=== PATIENT | male | born 1955 | race Caucasian/White ===

== ENCOUNTER 2019-04-02 05:25 | Emergency (ER) | payer MEDICARE, MEDICAID ==
[~2019-04-02] VITALS: Ht 195.6 cm; Wt 125.2 kg
[~2019-04-02 05:25] MED LIST: ASPI-482 PO; ASPI325T8 PO; ATOR40TA59 PO; CETI10TA16 PO; HYDR-2765 PO; LISI10TA2 PO; LISINOPRIL PO; METO-269 PO; METOPROLOL; PANT40TA77 PO; SIMVASTATIN
--- NOTE | 2019-04-02 05:32 | PHYS DOC ---
Past Medical History Past Medical History: Arrhythmia, High Cholesterol, Hypertension (MARCIA GLEZ DO) Past Surgical History: Other Additional Past Surgical Histo: MITRAL VALVE REPAIR, left inguinal hernia repair (MARCIA GLEZ DO) Smoking: Quit Greater Than 1 Year Alcohol Use: Rarely Drug Use: None (MARCIA GLEZ DO) Adult General Chief Complaint Chief Complaint: ABDOMINAL PAIN HPI HPI Patient is a 63 year old male who presents with abdominal pain. Pain started yesterday at noon, is localized to his right lower quadrant. It is a sharp pain that is worse with movement. He has nausea but no vomiting, fever, chills, or diarrhea. The pain is currently rated 5/10. (MARCIA GLEZ DO) Review of Systems Review of Systems Constitutional: Denies fever or chills Eyes: Denies redness or eye pain HENT: Denies nasal congestion or sore throat Respiratory: Denies cough or shortness of breath Cardiovascular: Denies chest pain or palpitations GI: Reports abdominal pain and nausea, denies vomiting : Denies dysuria or hematuria Musculoskeletal: Denies back pain or joint pain Integument: Denies rash or skin lesions Neurologic: Denies headache, focal weakness or sensory changes Complete systems were reviewed and found to be within normal limits, except as d ocumented in this note. (MARCIA GLEZ DO) Current Medications Current Medications Current Medications Medications (Trade) Dose Ordered Sig/[place] Start Time Stop Time Status Last Admin Dose Admin Info (CONTRAST GIVEN -- Rx MONITORING) 1 each PRN DAILY PRN 04/02/19 06:45 04/04/19 06:44 Iohexol (Omnipaque 300 Mg/ml) 60 ml 1X ONCE 04/02/19 06:45 04/02/19 06:46 DC 04/02/19 06:43 60 ML Piperacillin Sod/ Tazobactam Sod 3.375 gm/Sodium Chloride 50 ml @ 100 mls/hr 1X ONCE 04/02/19 07:15 04/02/19 07:44 DC 04/02/19 07:55 100 MLS/HR Sodium Chloride 1,000 ml @ 1,000 mls/hr 1X ONCE 04/02/19 06:00 04/02/19 06:59 DC 04/02/19 06:00 1,000 MLS/HR (FLOWER BOYCE MD) Allergies Allergies Allergies Coded Allergies Type Severity Reaction Last Updated Verified No Known Drug Allergies 01/13/14 No (FLOWER BOYCE MD) Physical Exam Physical Exam Constitutional: Well developed, well nourished, no acute distress, non-toxic appearance HENT: Normocephalic, atraumatic, oropharynx moist Eyes: PERRL, EOMI, conjunctiva normal, no discharge Neck: Normal range of motion, no tenderness, supple Cardiovascular: Heart rate normal, regular rhythm Lungs & Thorax: Bilateral breath sounds clear to auscultation, no wheezing Abdomen: Soft, tenderness to palpation in right lower quadrant, no peritoneal si gns, no Rovsing sign, no obturator sign. Skin: Warm, dry, no erythema, no rash Back: No tenderness, no CVA tenderness Extremities: No tenderness, ROM intact, no edema Neurologic: Alert and oriented X 3, normal motor function, normal sensory functi on, no focal deficits noted Psychologic: Affect normal, judgement normal, mood normal (MARCIA GLEZ DO) Current Patient Data Vital Signs Vital Signs Date Time Temp Pulse Resp B/P (MAP) Pulse Ox O2 Delivery O2 Flow Rate FiO2 04/02/19 08:00 68 129/75 (93) 99 Room Air 04/02/19 06:24 18 04/02/19 05:44 98.2 98.2 (FLOWER BOYCE MD) Lab Values Laboratory Tests Test 04/02/19 05:54 04/02/19 05:58 04/02/19 08:55 White Blood Count 9.0 x10^3/uL (4.0-11.0) Red Blood Count 4.16 x10^6/uL (4.30-5.70) L Hemoglobin 12.6 g/dL (13.0-17.5) L Hematocrit 36.6 % (39.0-53.0) L Mean Corpuscular Volume 88 fL (79-100) Mean Corpuscular Hemoglobin 30 pg (25-35) Mean Corpuscular Hemoglobin Concent 35 g/dL (31-37) Red Cell Distribution Width 15.5 % (11.5-14.5) H Platelet Count 159 x10^3/uL (140-400) Neutrophils (%) (Auto) 72 % (31-73) Lymphocytes (%) (Auto) 20 % (24-48) L Monocytes (%) (Auto) 7 % (0-9) Eosinophils (%) (Auto) 1 % (0-3) Basophils (%) (Auto) 1 % (0-3) Neutrophils # (Auto) 6.5 x10^3/uL (1.8-7.7) Lymphocytes # (Auto) 1.8 x10^3/uL (1.0-4.8) Monocytes # (Auto) 0.6 x10^3/uL (0.0-1.1) Eosinophils # (Auto) 0.1 x10^3/uL (0.0-0.7) Basophils # (Auto) 0.1 x10^3/uL (0.0-0.2) Prothrombin Time 13.2 SEC (11.7-14.0) Prothrombin Time INR 1.0 (0.8-1.1) PTT 30 SEC (24-38) Sodium Level 141 mmol/L (136-145) Potassium Level 4.6 mmol/L (3.5-5.1) Chloride Level 105 mmol/L (98-107) Carbon Dioxide Level 27 mmol/L (21-32) Anion Gap 9 (6-14) Blood Urea Nitrogen 25 mg/dL (8-26) Creatinine 1.5 mg/dL (0.7-1.3) H Estimated GFR (Cockcroft-Gault) 47.3 BUN/Creatinine Ratio 17 (6-20) Glucose Level 122 mg/dL (70-99) H Lactic Acid Level 2.8 mmol/L (0.4-2.0) H 1.4 mmol/L (0.4-2.0) Calcium Level 8.9 mg/dL (8.5-10.1) Magnesium Level 2.2 mg/dL (1.8-2.4) Total Bilirubin 0.4 mg/dL (0.2-1.0) Aspartate Amino Transferase (AST) 19 U/L (15-37) Alanine Aminotransferase (ALT) 32 U/L (16-63) Alkaline Phosphatase 85 U/L (46-116) Creatine Kinase 182 U/L (39-308) Creatine Kinase MB (Mass) 2.5 ng/mL (0.0-3.6) Creatine Kinase MB Relative Index 1.4 % (0-4) Troponin I Quantitative < 0.017 ng/mL (0.000-0.055) Total Protein 7.1 g/dL (6.4-8.2) Albumin 4.2 g/dL (3.4-5.0) Albumin/Globulin Ratio 1.4 (1.0-1.7) Lipase 102 U/L (73-393) Urine Collection Type Unknown Urine Color Yellow Urine Clarity Clear Urine pH 5.5 Urine Specific [place] 1.010 Urine Protein Negative mg/dL (NEG-TRACE) Urine Glucose (UA) Negative mg/dL (NEG) Urine Ketones (Stick) Negative mg/dL (NEG) Urine Blood Negative (NEG) Urine Nitrite Negative (NEG) Urine Bilirubin Negative (NEG) Urine Urobilinogen Dipstick 0.2 mg/dL (0.2 mg/dL) Urine Leukocyte Esterase Negative (NEG) Urine RBC Occ /HPF (0-2) Urine WBC 1-4 /HPF (0-4) Urine Squamous Epithelial Cells Few /LPF Urine Bacteria 0 /HPF (0-FEW) Laboratory Tests 04/02/19 05:54 Laboratory Tests 04/02/19 05:54 (FLOWER BOYCE MD) EKG EKG 04/02/2019 at 05 58 shows normal sinus rhythm at [address] elevations.[] (MARCIA GLEZ DO) Radiology/Procedures Radiology/Procedures [] (MARCIA GLEZ DO) Radiology/Procedures [facility] [address] [place] [address] IMAGING REPORT Signed PATIENT: BRETT HARDY ACCOUNT: [id number] : 1955 LOCATION: ER AGE: 63 SEX: M EXAM STATUS: REG ER ORD. PHYSICIAN: MARCIA GLEZ DO REASON: RLQ abdominal pain PROCEDURE: CT ABD PELV W/ IV CONTRST ONLY CT study abdomen and pelvis with contrast Clinical indications: Right lower quadrant abdominal pain TECHNIQUE: After IV infusion of 60 cc. Omnipaque 300, helical CT scanning of the abdomen and pelvis was performed. Note-the scan was performed in delayed fashion since the vascular ultrasound technologist inadvertently scanned the chest. No GI contrast was administered. This may decrease the sensitivity to detect GI tract pathology. PQRS compliance Statement One or more of the following individualized dose reduction techniques were utilized for this study: 1. Automated exposure control 2. Adjustment of the mA and/or kV according to patient size 3. Use of iterative reconstruction technique COMPARISON: None available. FINDINGS: There are hypodense lesions of the liver. The largest is seen within the upper aspect of the liver measuring 3.7 cm in size. It measures 18 Hounsfield units consistent with a cyst. The spleen measures 13.2 cm in length which is at the upper limits of normal. The pancreas and gallbladder are normal. No extra hepatic biliary ductal dilatation is seen. No adrenal mass is evident. No hydronephrosis or hydroureter is seen. Bilateral renal cysts are seen. No focal aneurysmal dilatation of the abdominal aorta is seen. No enlarged abdominal or pelvic lymphadenopathy is evident. Urinary bladder wall is smooth. The appendix and terminal ileum are unremarkable. No obstructive bowel pattern is evident. No pericolonic inflammatory change is seen. Scattered colonic diverticulosis is seen without diverticulitis. Mild fecal retention is seen throughout the colon. No free air or free fluid or mesenteric edema is seen. No lung base consolidation is evident. No lytic process is seen. IMPRESSION: No acute abnormality of the abdomen or pelvis. The spleen measures 13.2 cm in length which is at the upper limits of normal. Calcified atheromatous disease of the coronary arteries is evident. Electronically signed by: Lavern Vega MD (04/02/2019 8:06 AM) [facility] DICTATED and SIGNED BY: LAVERN VEGA MD DATE: 04/02/19805 (FLOWER BOYCE MD) Course & Med Decision Making Course & Med Decision Making Mr. Hardy is a 63 year old male who presents with abdominal pain. He is having sharp right lower abdominal pain that started yesterday at noon. He is having nausea with no vomiting, fever, chills, or diarrhea. The patient had a previous exploratory laparotomy d/t penetrating abdominal trauma. CT scan with IV contrast of the abdomen ordered to r/o appendicitis or other abdominal pathologies. Sign out to Dr. Boyce for further evaluation and disposition. Discussed plan with patient and family, who acknowledge understanding and agreement. [] (MARCIA GLEZ DO) Course & Med Decision Making Patient care transferred to mo at 0600. Patient was seen by Dr. ndiaye because of right lower abdominal pain. Patient had unremarkable physical exam except for mild right lower quadrant guarding and tenderness with deep pressure. Patient had unremarkable CBC and CMP except for creatinine of 1.5. Lactic acid was 2.8 and blood culture was obtained and one dose of Zosyn was given. CT abdomen and pelvis did not show acute problem except for accidental finding of 3.5 cm liver cyst. Repeat lactic acid was 1.4. Plan discharge patient home with nonspecific abdominal pain. Patient did not want any pain medication while he was in the emergency room and stated he had pain medication at home. (FLOWER BOYCE MD) Dragon Disclaimer Dragon Disclaimer This electronic medical record was generated, in whole or in part, using a voice recognition dictation system. (MARCIA GLEZ DO) Departure Departure Impression: Primary Impression: Abdominal pain Additional Impressions: Liver cyst Renal insufficiency Disposition: HOME, SELF-CARE (at 0 922) Condition: IMPROVED Referrals: TATYANA MACK MD (PCP) Patient Instructions: Abdominal Pain (Nonspecific) Additional Instructions: Drink plenty of liquids Follow-up with your primary care physician in 3-5 days Return to ER if not getting better Scripts Cephalexin (KEFLEX) 500 Mg Capsule 2 CAP PO Q12HR, #28 CAP Prov: FLOWER BOYCE MD 04/02/19 Problem Qualifiers Primary Impression: Abdominal pain Abdominal location: right lower quadrant Qualified Codes: R10.31 - Right lower quadrant pain MARCIA GLEZ DO Apr 02, 2019 05:32 FLOWER BOYCE MD Apr 02, 2019 07:07
[2019-04-02] MEDS ORDERED: IV NORMAL SALINE 1000ML BAG 1,000 ML IV ONE (06:00)
[2019-04-02 06:12] LABS: BASO # 0.1 x10^3/uL (0.0-0.2); BASO % 1 % (0-3); EOS # 0.1 x10^3/uL (0.0-0.7); EOS % 1 % (0-3); HEMATOCRIT 36.6 % (39.0-53.0); HEMOGLOBIN 12.6 g/dL (13.0-17.5); LYMPH # 1.8 x10^3/uL (1.0-4.8); LYMPH % 20 % (24-48); MEAN CORPUSCULAR HEMOGLOBIN 30 pg (25-35); MEAN CORPUSCULAR HGB CONC 35 g/dL (31-37); MEAN CORPUSCULAR VOLUME 88 fL (79-100); MONO # 0.6 x10^3/uL (0.0-1.1); MONO % 7 % (0-9); NEUT # 6.5 x10^3/uL (1.8-7.7); NEUT % 72 % (31-73); PLATELET COUNT 159 x10^3/uL (140-400); RED BLOOD COUNT 4.16 x10^6/uL (4.30-5.70); RED CELL DISTRIBUTION WIDTH 15.5 % (11.5-14.5)
[2019-04-02 06:20] LABS: CALCIUM 8.9 mg/dL (8.5-10.1); CREATININE 1.5 mg/dL (0.7-1.3); GFR 47.3; POTASSIUM 4.6 mmol/L (3.5-5.1)
[2019-04-02 06:26] LABS: ALBUMIN 4.2 g/dL (3.4-5.0); ALBUMIN/GLOBULIN RATIO 1.4 (1.0-1.7); MAGNESIUM 2.2 mg/dL (1.8-2.4); TOTAL BILIRUBIN 0.4 mg/dL (0.2-1.0); TOTAL PROTEIN 7.1 g/dL (6.4-8.2)
[2019-04-02 06:37] LABS: BILIRUBIN,URINE NEGATIVE (NEG); CLARITY,URINE CLEAR; COLOR,URINE YELLOW; NITRITE,URINE NEGATIVE (NEG); PH,URINE 5.5; PROTEIN,URINE NEGATIVE (NEG-TRACE); UROBILINOGEN,URINE 0.2 mg/dL (0.2 mg/dL)
[2019-04-02] MEDS ORDERED: CONTRAST GIVEN. MC PRN (06:45)
[2019-04-02] MEDS ORDERED: IOHEXOL 300 MG/ML 100ML VIAL. IV ONE (06:45)
[2019-04-02 06:57] LABS: BACTERIA,URINE 0 /HPF (0-FEW); RBC,URINE OCC /HPF (0-2); SQUAMOUS EPITHELIAL CELL,UR FEW /LPF
[2019-04-02 07:10] LABS: PROTHROMBIN TIME PATIENT 13.2 SEC (11.7-14.0)
[2019-04-02] MEDS ORDERED: PIPERACILLIN/TAZOBACTAM 3.375 GM in IV NORMAL SALINE 50ML 50 ML IV ONE (07:15)
--- NOTE | 2019-04-02 08:09 | RAD ---
CT study abdomen and pelvis with contrast Clinical indications: Right lower quadrant abdominal pain TECHNIQUE: After IV infusion of 60 cc. Omnipaque 300, helical CT scanning of the abdomen and pelvis was performed. Note-the scan was performed in delayed fashion since the tomography technologist inadvertently scanned the chest. No GI contrast was administered. This may decrease the sensitivity to detect GI tract pathology. PQRS compliance Statement One or more of the following individualized dose reduction techniques were utilized for this study: 1. Automated exposure control 2. Adjustment of the mA and/or kV according to patient size 3. Use of iterative reconstruction technique COMPARISON: None available. FINDINGS: There are hypodense lesions of the liver. The largest is seen within the upper aspect of the liver measuring 3.7 cm in size. It measures 18 Hounsfield units consistent with a cyst. The spleen measures 13.2 cm in length which is at the upper limits of normal. The pancreas and gallbladder are normal. No extra hepatic biliary ductal dilatation is seen. No adrenal mass is evident. No hydronephrosis or hydroureter is seen. Bilateral renal cysts are seen. No focal aneurysmal dilatation of the abdominal aorta is seen. No enlarged abdominal or pelvic lymphadenopathy is evident. Urinary bladder wall is smooth. The appendix and terminal ileum are unremarkable. No obstructive bowel pattern is evident. No pericolonic inflammatory change is seen. Scattered colonic diverticulosis is seen without diverticulitis. Mild fecal retention is seen throughout the colon. No free air or free fluid or mesenteric edema is seen. No lung base consolidation is evident. No lytic process is seen. IMPRESSION: No acute abnormality of the abdomen or pelvis. The spleen measures 13.2 cm in length which is at the upper limits of normal. Calcified atheromatous disease of the coronary arteries is evident. Electronically signed by: Kp Vega MD (04/02/2019 8:06 AM) [facility]
[2019-04-02] MEDS ORDERED: CEPH-264 PO (09:23)
[2019-04-02 09:25] VITALS: BP 109/80
--- NOTE | 2019-04-03 11:43 | EKG ---
[facility] [address] [place] [address] Test Date: 2019-04-02 Test Time: 05:58:02 Pat Name: BRETT GALVAN Department: Room: Gender: M [employer]: : 1955 Requested By: MARCIA GLEZ Order Number: [id number] Reading MD: Measurements Intervals [place] Rate: 72 P: 37 [place]: 136 QRS: 18 QRSD: 94 T: 39 QT: 388 QTc: 426 Interpretive Statements SINUS RHYTHM NO SPECIFIC ECG ABNORMALITIES RI6.01 Unconfirmed report No previous ECG available for comparison
== END 2019-04-02 09:55 | disposition home or self-care (01) ==
LOC: ER 05:25
DX: K76.89 Other specified diseases of liver (principal); R10.31 Right lower quadrant pain; N28.9 Disorder of kidney and ureter, unspecified; I10 Essential (primary) hypertension; E78.00 Pure hypercholesterolemia, unspecified; Z98.890 Other specified postprocedural states; Z87.891 Personal history of nicotine dependence
CPT/HCPCS: 36415; 74176; 74177; 80053; 81001; 82553; 83605; 83690; 83735; 84484; 85025; 85610; 85730; 87040; 93005; 96365; 99285; J2543; J7030; Q9967

== ENCOUNTER → 2019-10-05 | Outpatient (CLI) | payer MEDICARE, MEDICAID ==
[~2019-10-05] MED LIST changes: +CEPH-264 PO
--- NOTE | 2019-10-05 10:48 | KCIC ---
MR of the left shoulder HISTORY: Left shoulder pain. Pain is chronic. TECHNIQUE: Routine multiplanar sequences are obtained. FINDINGS: Note that the larger flex coil had to be used due to body habitus with some image degradation. The acromioclavicular joint is degenerative with small undersurface osteophytes and mass effect upon the supraspinatus. Mild fluid within the joint. Mild heterogeneous signal within the rotator cuff compatible with tendinosis. No measurable rotator cuff tear. Mild fluid in the subdeltoid bursa. No significant glenohumeral joint effusion. No evidence of definite labral tear or detachment, or para labral cyst. Biceps tendon is intact. No acute fracture. No aggressive bone destruction. No acute soft tissue abnormality. IMPRESSION: 1. No definite rotator cuff tear. Mild subdeltoid bursal fluid or bursitis. 2. 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 Electronically signed by: Charles Galarza MD (10/05/2019 10:45 AM) [facility]
== END | disposition home or self-care (01) ==
LOC: KCIC MRI 08:14
PROVIDERS: ATTEND Nurse Practitioner Family
DX: M19.012 Primary osteoarthritis, left shoulder (principal); G89.29 Other chronic pain; M25.412 Effusion, left shoulder
CPT/HCPCS: 73221